=== PATIENT | female | born 1940 | race Caucasian/White ===

== ENCOUNTER 2019-12-23 09:20 | Day surgery (SDC) | payer MEDICARE, MEDICAID ==
[~2019-12-23] VITALS: Ht 160 cm; Wt 74.1 kg
[2019-12-23] VITALS (9 sets, daily range): BP systolic 103–144; BP diastolic 51–63
[2019-12-23] MEDS ORDERED: normal saline 1000ml 1,000 ML IV SCH (09:45)
[2019-12-23] MEDS ORDERED: diphenhydrAMINE 25mg capsule PO ONE (09:50)
[2019-12-23] MEDS ORDERED: HYDR-3972 PO (10:05)
[2019-12-23] MEDS ORDERED: LISI-604 PO (10:05)
[2019-12-23] MEDS ORDERED: ISOS30TA6 PO (10:05)
[2019-12-23] MEDS ORDERED: CETI10CA19 PO (10:05)
[2019-12-23] MEDS ORDERED: NITR4.9S4 (10:05)
[2019-12-23] MEDS ORDERED: ATOR40TA72 PO (10:05)
[2019-12-23] MEDS ORDERED: CLOP75TA35 PO (10:05)
[2019-12-23] MEDS ORDERED: DOCU-267 PO (10:05)
[2019-12-23 10:51] LABS: BASOPHILS # (AUTO) 0.1 X10'3 (0-0.2); BASOPHILS % (AUTO) 1.4 % (0-1); EOSINOPHILS # (AUTO) 0.4 X10'3 (0-0.9); EOSINOPHILS % (AUTO) 5.8 % (0-6); HEMOGLOBIN 13.5 g/dl (12.0-16.0); LYMPHOCYTES # (AUTO) 2.1 X10'3 (1.1-4.8); LYMPHOCYTES % (AUTO) 31.4 % (21-51); MEAN CORPUSCULAR HEMOGLOBIN 31.8 PG (27.0-31.0); MEAN CORPUSCULAR HGB CONC 33.7 g/dL (33.0-36.5); MEAN CORPUSCULAR VOLUME 94.4 FL (78-98); MEAN PLATELET VOLUME 8.4 FL (7.4-10.4); MONOCYTES # (AUTO) 0.5 X10'3 (0-0.9); MONOCYTES % (AUTO) 8.1 % (2-12); NEUTROPHILS # (AUTO) 3.5 X10'3 (1.8-7.7); NEUTROPHILS % (AUTO) 53.3 % (42-75); PLATELET COUNT 144 X10'3 (140-440); RED BLOOD COUNT 4.24 X10'6 (4.20-5.60); WHITE BLOOD COUNT 6.6 X10'3 (4.5-11.0)
[2019-12-23 10:59] LABS: ALBUMIN 3.6 G/DL (3.4-5.0); ANION GAP 8 (8-16); BLOOD UREA NITROGEN 23 MG/DL (7-18); BUN/CREATININE RATIO 21.1 (6.6-38.0); CALCIUM 8.9 MG/DL (8.5-10.1); CHLORIDE 104 MMOL/L (99-107); CREATININE 1.09 MG/DL (0.40-0.90); GLUCOSE 95 MG/DL (70-104); POTASSIUM 3.7 MMOL/L (3.5-5.1); SODIUM 138 MMOL/L (135-145); TOTAL CARBON DIOXIDE 25.8 MMOL/L (24-32); eGFR 49 ML/MIN
[2019-12-23] MEDS ORDERED: LIDOcaine 1% (10mg/ml)w/preservative injection 20ml MDV ONE (11:47)
[2019-12-23] MEDS ORDERED: fentaNYL/PF 50MCG/1 ML 2ML syringe ONE (11:47)
[2019-12-23] MEDS ORDERED: midazolam 2 mg/2 ml injection ONE (11:47)
[2019-12-23] MEDS ORDERED: iohexol 350MG/ML 100ml bottle IV ONE (11:47)
[2019-12-23] MEDS ORDERED: iohexol 350 MG/ML 50ML vial IV ONE (11:47)
[2019-12-23] MEDS ORDERED: proCHLORperazine 10 MG/2 ml inj IV PRN (13:05)
[2019-12-23] MEDS ORDERED: ondansetron/PF 4mg/2ml inj IV PRN (13:05)
[2019-12-23] MEDS ORDERED: acetaminophen 325mg tablet PO PRN (13:05)
[2019-12-23] MEDS ORDERED: HYDROcodone/acetaminophen 5mg/325mg tablet PO PRN (13:05)
[2019-12-23] MEDS ORDERED: HYDROcodone/acetaminophen 10/325mg tab PO PRN (13:05)
== END 2019-12-23 15:30 | disposition home or self-care (01) ==
LOC: SSTAY O 09:20
PROVIDERS: ATTEND Internal Medicine Cardiovascular Disease
DX: I25.119 Atherosclerotic heart disease of native coronary artery with unspecified angina pectoris (principal); I25.82 Chronic total occlusion of coronary artery; I10 Essential (primary) hypertension; Z95.5 Presence of coronary angioplasty implant and graft
CPT/HCPCS: 36415; 76937; 80048; 83735; 85025; 85610; 93005; 93459; 93571; 99152; 99153; C1760; C1769; C1894; J1644; J2001; J2250; J3010; J7030; Q0163; Q9967; A4620; A6258